=== PATIENT | female | born 2000 | race Caucasian/White ===

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

== ENCOUNTER 2022-05-07 08:14 | Emergency (ER) | payer MEDICAID ==
[~2022-05-07] VITALS: Ht 160 cm; Wt 81.6 kg
[2022-05-07 08:15] VITALS: BP_SYST 127
[2022-05-07 09:13] VITALS: BP_SYST 130
== END 2022-05-07 09:08 | disposition home or self-care (01) ==
LOC: SED 08:14
DX: H61.22 Impacted cerumen, left ear (principal); H92.02 Otalgia, left ear; Z79.899 Other long term (current) drug therapy
CPT/HCPCS: 99282

== ENCOUNTER 2022-10-21 16:01 | Emergency (ER) | payer MEDICAID ==
[~2022-10-21] VITALS: Ht 160 cm; Wt 81.6 kg
[2022-10-21 16:30] VITALS: BP_SYST 156; PULSE 78; RESP 18; TEMP 97.1; O2SAT 100
== END 2022-10-21 18:40 | disposition home or self-care (01) ==
LOC: SED 16:01
DX: H61.23 Impacted cerumen, bilateral (principal); H92.01 Otalgia, right ear; Z79.899 Other long term (current) drug therapy
CPT/HCPCS: 99282

== ENCOUNTER 2023-01-30 08:33 | Emergency (ER) | payer MEDICAID ==
[~2023-01-30] VITALS: Ht 157.5 cm; Wt 81.6 kg
[2023-01-30 08:42] VITALS: BP_SYST 130; PULSE 69; RESP 16; TEMP 97.8; O2SAT 99
[2023-01-30] MEDS ORDERED: IBUP-1969 PO (09:03)
[2023-01-30] MEDS ORDERED: CORTEARS RIGHT EAR (09:03)
== END 2023-01-30 09:12 | disposition home or self-care (01) ==
LOC: SED 08:33
DX: H92.01 Otalgia, right ear (principal); Z79.899 Other long term (current) drug therapy
CPT/HCPCS: 99283

== ENCOUNTER 2023-09-07 11:56 | Emergency (ER) | payer MEDICAID ==
[~2023-09-07] VITALS: Ht 160 cm; Wt 95.3 kg
[~2023-09-07 11:56] MED LIST: CORTEARS RIGHT EAR; IBUP-1969 PO
[2023-09-07 12:05] VITALS: BP_SYST 118; PULSE 80; RESP 16; TEMP 97.8; O2SAT 97
== END 2023-09-07 14:11 | disposition left against medical advice (07) ==
LOC: SED 11:56
DX: R10.9 Unspecified abdominal pain (principal); R11.2 Nausea with vomiting, unspecified; R19.7 Diarrhea, unspecified; Z53.21 Procedure and treatment not carried out due to patient leaving prior to being seen by health care provider

== ENCOUNTER 2023-10-14 22:01 | Emergency (ER) | payer MEDICAID ==
[~2023-10-14] VITALS: Ht 162.6 cm; Wt 81.6 kg
[2023-10-14 22:12] VITALS: BP_SYST 130; PULSE 122; RESP 20; TEMP 98; O2SAT 98
[2023-10-14] MEDS: KETOROLAC TROMETHAMINE 30 MG VIAL IM ONE (22:40)
[2023-10-14 22:47] LABS: BASOPHILS # (AUTO) 0.1 K/uL (0.0-0.2); BASOPHILS % (AUTO) 0.9 % (0.0-2.0); EOSINOPHILS # (AUTO) 0.1 K/uL (0.0-0.4); EOSINOPHILS % (AUTO) 1.2 % (0.0-4.0); HEMATOCRIT 38.2 % (36-48); HEMOGLOBIN 12.6 g/dL (12.0-16.0); LYMPHOCYTES # (AUTO) 3.8 K/uL (1.0-5.5); LYMPHOCYTES % (AUTO) 51.9 % (20.5-51.5); MEAN CORPUSCULAR HEMOGLOBIN 24 pg (27-31); MEAN CORPUSCULAR HGB CONC 33 % (32-36); MEAN CORPUSCULAR VOLUME 74 fL (79.0-98.0); MONOCYTES # (AUTO) 0.4 K/uL (0.0-1.0); MONOCYTES % (AUTO) 5.7 % (1.7-9.3); NEUTROPHILS # (AUTO) 2.9 K/uL (1.8-7.7); NEUTROPHILS % (AUTO) 40.3 % (40.0-70.0); PLATELET COUNT (AUTO) 254 K/uL (130-430); RED BLOOD CELL COUNT(AUTO) 5.18 MIL/uL (4.2-6.2); RED CELL DISTRIBUTION WIDTH 15.3 % (9.0-15.0); WHITE BLOOD COUNT (AUTO) 7.3 K/uL (4.8-10.8)
[2023-10-14 23:07] LABS: BILIRUBIN,DIRECT 0.1 mg/dL (0.0-0.3); CALCIUM 9.1 mg/dL (8.4-11.0); CREATININE 0.67 mg/dL (0.55-1.30); POTASSIUM 3.9 mmol/L (3.5-5.1); TOTAL BILIRUBIN 0.3 mg/dL (0.0-1.0); TOTAL PROTEIN, SERUM 8.2 g/dL (6.4-8.3)
[2023-10-15 00:22] LABS: BILIRUBIN,URINE NEGATIVE (NEGATIVE); BLOOD, URINE NEGATIVE (NEGATIVE); CLARITY/URINE SL CLOUDY (CLEAR); COLOR,URINE YELLOW (YELLOW); GLUCOSE,URINE NEGATIVE (NEGATIVE); KETONES,URINE TRACE (NEGATIVE); LEUKOCYTE ESTERASE ,URINE TRACE (NEGATIVE); NITRITE, URINE NEGATIVE (NEGATIVE); PROTEIN URINE NEGATIVE (NEGATIVE)
[2023-10-15 00:35] LABS: BACTERIA,URINE MODERATE /HPF (None Seen); RBC,URINE 0-3 /HPF (0-3)
[2023-10-15] MEDS ORDERED: CEPH250C PO (01:32)
[2023-10-15 01:44] VITALS: BP_SYST 120; PULSE 86; RESP 18; TEMP 97; O2SAT 98
[2023-10-15] MEDS: cephALEXin 500 MG CAPSULE PO ONE (01:44)
[2023-10-15] MEDS: HYDROcodone/ACETAMIN 5-325 MG TAB (NORCO/ VICODIN) PO ONE (01:45)
== END 2023-10-15 01:44 | disposition home or self-care (01) ==
LOC: SED 22:01
DX: N39.0 Urinary tract infection, site not specified (principal); R10.9 Unspecified abdominal pain; Z79.899 Other long term (current) drug therapy; Z79.2 Long term (current) use of antibiotics
CPT/HCPCS: 99285; 74176; 80076; 80048; 81001; 85025; 87086; 36415; 96372; J1885; 81000; 81015